=== PATIENT | male | born 1970 | race Caucasian/White ===

== ENCOUNTER 2021-07-28 11:43 | Emergency (ER) | payer SELFPAY ==
[~2021-07-28] VITALS: Ht 172.7 cm; Wt 104.3 kg
[~2021-07-28 11:43] MED LIST: HYDR1TAB94 PO
[2021-07-28] MEDS ORDERED: COLCRYS0.6 M1 PO (12:13)
[2021-07-28] MEDS ORDERED: LOSA50 (12:13)
[2021-07-28] MEDS ORDERED: FEBUXOSTAT80 MG PO (12:13)
[2021-07-28] MEDS ORDERED: Norco 5-325 Ta1 EACH PO (13:26)
== END 2021-07-28 13:44 | disposition home or self-care (01) ==
LOC: ER 11:43
DX: S63.601A Unspecified sprain of right thumb, initial encounter (principal); W01.0XXA Fall on same level from slipping, tripping and stumbling without subsequent striking against object, initial encounter
CPT/HCPCS: 73140; 99283-25

== ENCOUNTER 2022-07-24 01:05 | Inpatient (IN) | payer SELFPAY ==
[~2022-07-24] VITALS: Ht 172.7 cm; Wt 106.5 kg
[~2022-07-24 01:05] MED LIST changes: +CEFD300 PO; +COLCRYS0.6 M1 PO; +FEBUXOSTAT80 MG PO; +LOSA50; +METF500 PO; +METO100ER PO; +Norco 5-325 Ta1 EACH PO; +POTCHL20ER PO
[2022-07-24 03:02] LABS: Albumin, Blood 2.3 g/dL (3.4-5.0); Albumin/Globulin Ratio 0.6 (0.8-1.8); Bun/Creatinine Ratio 19.8 (12.0-20.0); Calcium, Blood 8.5 mg/dL (8.5-10.1); Creatinine, Blood 1.11 mg/dL (0.60-1.20); Globulin, Blood 3.9 g/dL (2.2-4.0); Magnesium, Blood 2.1 mg/dL (1.6-2.4); Potassium, Blood 3.9 mmol/L (3.5-5.5); Total Protein, Blood 6.2 g/dL (6.4-8.2)
[2022-07-24 03:19] LABS: Bilirubin, Direct 19.7 mg/dL (0.0-0.3); Bilirubin, Indirect 5.3 mg/dL (0.1-0.7)
[2022-07-24 03:56] LABS: International Normalized Ratio 3.98; Prothrombin Time Results 38.2 Sec (9.7-11.5)
[2022-07-24 05:00] LABS: BASOPHILS ABSOLUTE AUTO 0.04 K/mm3 (0.00-0.23); BASOPHILS PERCENT AUTO 0 % (0-2); EOSINOPHILS ABSOLUTE AUTO 0.03 K/mm3 (0.00-0.68); EOSINOPHILS PERCENT AUTO 0 % (0-6); Hematocrit 33.8 % (37.0-53.0); IMMATURE GRAN ABSOLUTE AUTO 0.05 K/mm3 (0.00-0.10); IMMATURE GRAN PERCENT AUTO 1 % (0-1); LYMPHOCYTES ABSOLUTE AUTO 0.75 K/mm3 (0.84-5.20); LYMPHOCYTES PERCENT AUTO 8 % (21-46); MONOCYTES ABSOLUTE AUTO 1.41 K/mm3 (0.16-1.47); MONOCYTES PERCENT AUTO 14 % (4-13); Mean Corpuscular Volume 101 fL (80-100); NEUTROPHILS ABSOLUTE AUTO 7.48 K/mm3 (1.96-9.15); NEUTROPHILS PERCENT AUTO 77 % (41-73); Platelet Count 200 K/mm3 (150-400); RDW Coefficient Variation 17.2 % (11.7-14.2); RDW Standard Deviation 64.3 fL (35.1-46.3); Red Blood Cell Count 3.36 M/mm3 (4.30-5.90); White Blood Cell Count 9.76 K/mm3 (4.00-11.30)
[2022-07-24 09:37] LABS: Source, Urine Clean Catch
[2022-07-24 10:02] LABS: Blood, Urine 2+ (Neg); Color, Urine Brown (P-Yellow); Glucose Qualitative, Urine 1+ (Neg); Ketones, Urine 1+ (Neg); Leukocyte Esterase, Urine 1+ (Neg); Nitrite, Urine Pos (Neg); Protein, Urine 2+ (Neg); Urobilinogen, Urine 3+ (Normal)
[2022-07-24 10:03] LABS: Bilirubin, Urine 3+ (Neg)
[2022-07-24 10:06] LABS: Hyaline Casts 50-100 /lpf (0-2)
[2022-07-24 10:08] LABS: Bacteria Many /hpf
[2022-07-24 10:10] LABS: Transitional Epithelial Cells Many /hpf (0-Rare)
[2022-07-24 10:12] LABS: Mucus Heavy (0-Heavy)
[2022-07-24 10:14] LABS: Appearance, Urine Cloudy (Clear)
[2022-07-24 10:15] LABS: Squamous Epithelial Cells Rare /hpf (Few)
--- NOTE | 2022-07-24 16:07 | NUR ---
SHIFT SUMMARY 0700 PT TO RM FROM ER DURING SHIFT REPORT. ADMITTED FOR ALCOHOLIC HEPATITIS. A&O, PLEASANT AND CO-OP. ABLE TO TX SELF TO BED. PT'S SKIN VERY YELLOW/JAUNDICED; FACE TO TORSO, ESPECIALLY. PT UP TO BTHRM TO VOID 90cc VERY DRK TEA COLORED URINE; SENT FOR UA. DR DELAROSA IN TO SEE PT EARLY. NEW ORDERS PLACED. PT REPORTED DIFFICULTY WITH BEING ABLE TO VOID. BLADDER SCAN ORDERED AND COMPLETE; 85cc PVR. US DONE FOR POSSIBLE PARACENTESIS; TECH REPORTED AMT OF FLUID MAY NOT BE ENOUGH FOR TAP. PT UP TO BTHRM AGAIN THIS AFTERNOON, REPORTING LOOSE STOOLS D/T LIVER ISSUES; NOT NEW. NO C/O PAIN TO PRESENT. RESTING QUIETLY WITH TV ON. DENIED FURTHER NEEDS AT THIS TIME. CALL LT IN REACH.
[2022-07-25 05:49] LABS: Albumin, Blood 1.9 g/dL (3.4-5.0); Albumin/Globulin Ratio 0.6 (0.8-1.8); Bilirubin, Total 22.3 mg/dL (0.1-1.0); Bun/Creatinine Ratio 20.8 (12.0-20.0); Calcium, Blood 7.5 mg/dL (8.5-10.1); Creatinine, Blood 1.44 mg/dL (0.60-1.20); Globulin, Blood 3.3 g/dL (2.2-4.0); Potassium, Blood 3.6 mmol/L (3.5-5.5); Total Protein, Blood 5.2 g/dL (6.4-8.2)
--- NOTE | 2022-07-25 06:00 | NUR ---
END OF SHIFT NURSING REPORT - PM Admitted for Acute alcoholic Hepatitis after presenting with bilateral lower abdominal sharp pains /. He admits prior use of hard alcohol, and daily beer. He presents with jaundice from head to waist line. Urine cloudy and orange. He is AOX4, room air and independent in room. Medicated for abdominal pain with PRN prior to bedtime x1. No acute events overnight, am labs drawn.
--- NOTE | 2022-07-25 18:19 | NUR ---
SHIFT SUMMARY NO ACUTE ISSUES THIS SHIFT. PTN SAYS SAYS IS FEELING BETTER, LESS PAIN TO ABD. JAUNDICE TO SKIN AND EYES NOTICABLE. MODERATE EDEMA TO LOWER LEGS AND FEET, EDUCATED ON ELEVATING LOWER EXTREMITIES. PTN VERBALIZED UNDERSTANDING. CONTINUE TO MONITOR.
[2022-07-26 05:22] LABS: Albumin, Blood 1.9 g/dL (3.4-5.0); Albumin/Globulin Ratio 0.6 (0.8-1.8); Bun/Creatinine Ratio 26.2 (12.0-20.0); Calcium, Blood 7.6 mg/dL (8.5-10.1); Creatinine, Blood 1.45 mg/dL (0.60-1.20); Globulin, Blood 3.2 g/dL (2.2-4.0); Potassium, Blood 3.2 mmol/L (3.5-5.5); Total Protein, Blood 5.1 g/dL (6.4-8.2)
--- NOTE | 2022-07-26 06:00 | NUR ---
END OF SHIFT NURSING REPORT - PM Admitted for Acute alcoholic Hepatitis after presenting with bilateral lower abdominal sharp pains 10/. He admits prior use of hard alcohol, and daily beer. He presents with jaundice from head to waist line. Urine cloudy and orange. He is AOX4, room air and independent in room. Medicated for abdominal pain with PRN prior to bedtime x1. Started for Tums Q6 PRN for acid reflux. No acute events overnight, am labs drawn.
[2022-07-26] MEDS ORDERED: OMEP20ER PO (11:43)
[2022-07-26] MEDS ORDERED: TAMS.4ER PO (11:43)
--- NOTE | 2022-07-26 12:52 | NUR ---
SHIFT SUMMARY PTN READY FOR D/C AND LEFT VIA WC AND SHERIE [facility]CHOA ESCORT TO EXIT. 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 D/C PAPERWORK REVIEWED WITH PTN AND ALL QUESTIONS ANSWERED. MEDICATIONS FAXED TO [facility] AT PTN REQUEST. TIME OF DEPARTURE 1230.
--- NOTE | 2022-07-26 15:02 | NUR ---
SHIFT SUMMARY PTN D/C'D HOME TODAY AT 1230, TRANSPORTED VIA WC TO EXIT FOR HIS RIDE HOME. D/C PAPERWORK COMPLETE AND REVIEWED WITH PTN, ALL QUESTIONS WERE ANSWERED. MEDICATIONS WERE FAXED OVER TO THE [facility] PER PTN REQUEST.
== END 2022-07-26 12:30 | disposition home or self-care (01) | DRG 690 ==
LOC: ER 01:05 → MEDS 06:26
PROVIDERS: Family Medicine; Student in an Organized Health Care Education/Training Program; ADMIT Internal Medicine
DX: N30.90 Cystitis, unspecified without hematuria (principal); D68.9 Coagulation defect, unspecified; E87.1 Hypo-osmolality and hyponatremia; K76.6 Portal hypertension; K70.31 Alcoholic cirrhosis of liver with ascites; K70.11 Alcoholic hepatitis with ascites; R94.5 Abnormal results of liver function studies; E80.6 Other disorders of bilirubin metabolism; K21.9 Gastro-esophageal reflux disease without esophagitis; F10.20 Alcohol dependence, uncomplicated; E87.6 Hypokalemia; R74.8 Abnormal levels of other serum enzymes; R73.9 Hyperglycemia, unspecified; Z79.84 Long term (current) use of oral hypoglycemic drugs; Z79.899 Other long term (current) drug therapy; Z79.2 Long term (current) use of antibiotics; Z98.890 Other specified postprocedural states; Z71.41 Alcohol abuse counseling and surveillance of alcoholic
CPT/HCPCS: 36415; 76705; 80048; 80053; 80076; 81001; 83615; 83690; 83735; 85025; 85610; 85730; 87086; 96361; 96374; 96375; 96376; 99284-25; A9270; G0378; J0696; J2270; J2405; J2920; J7030

== ENCOUNTER 2022-11-12 02:26 | Day surgery (SDC) | payer OTHER ==
[~2022-11-12 02:26] MED LIST changes: +OMEP20ER PO; +TAMS.4ER PO
== END 2022-11-12 22:48 | disposition home or self-care (01) ==
LOC: WOUND 02:26
PROC: 0JBP0ZZ Excision of Left Lower Leg Subcutaneous Tissue and Fascia, Open Approach (ICD-10-PCS; principal; 2022-11-12)
DX: E11.51 Type 2 diabetes mellitus with diabetic peripheral angiopathy without gangrene (principal); I70.248 Atherosclerosis of native arteries of left leg with ulceration of other part of lower leg; I70.238 Atherosclerosis of native arteries of right leg with ulceration of other part of lower leg; L97.822 Non-pressure chronic ulcer of other part of left lower leg with fat layer exposed; L97.812 Non-pressure chronic ulcer of other part of right lower leg with fat layer exposed; I83.018 Varicose veins of right lower extremity with ulcer other part of lower leg; I83.028 Varicose veins of left lower extremity with ulcer other part of lower leg; N18.6 End stage renal disease; E11.22 Type 2 diabetes mellitus with diabetic chronic kidney disease; K70.31 Alcoholic cirrhosis of liver with ascites; I87.2 Venous insufficiency (chronic) (peripheral); L03.115 Cellulitis of right lower limb; L03.116 Cellulitis of left lower limb; K76.7 Hepatorenal syndrome; D69.6 Thrombocytopenia, unspecified; Z99.2 Dependence on renal dialysis; Z79.4 Long term (current) use of insulin
CPT/HCPCS: A9270; G0463

== ENCOUNTER 2022-12-03 03:00 | Day surgery (SDC) | payer OTHER | END 2022-12-03 22:52 | disposition home or self-care (01) | LOC: WOUND 03:00 | DX: E11.622 Type 2 diabetes mellitus with other skin ulcer (principal); L97.829 Non-pressure chronic ulcer of other part of left lower leg with unspecified severity; L03.115 Cellulitis of right lower limb; L03.116 Cellulitis of left lower limb; I83.029 Varicose veins of left lower extremity with ulcer of unspecified site; K70.31 Alcoholic cirrhosis of liver with ascites; E11.22 Type 2 diabetes mellitus with diabetic chronic kidney disease; N18.6 End stage renal disease; K76.7 Hepatorenal syndrome; D69.6 Thrombocytopenia, unspecified; E11.621 Type 2 diabetes mellitus with foot ulcer; I87.313 Chronic venous hypertension (idiopathic) with ulcer of bilateral lower extremity; I87.2 Venous insufficiency (chronic) (peripheral); E11.51 Type 2 diabetes mellitus with diabetic peripheral angiopathy without gangrene | CPT/HCPCS: G0463 ==

== ENCOUNTER 2022-12-10 04:18 | Day surgery (SDC) | payer OTHER | END 2022-12-10 23:04 | disposition home or self-care (01) | LOC: WOUND 04:18 | DX: I83.028 Varicose veins of left lower extremity with ulcer other part of lower leg (principal); L97.829 Non-pressure chronic ulcer of other part of left lower leg with unspecified severity; L03.115 Cellulitis of right lower limb; L03.116 Cellulitis of left lower limb; K70.31 Alcoholic cirrhosis of liver with ascites; N18.6 End stage renal disease; E11.22 Type 2 diabetes mellitus with diabetic chronic kidney disease; D69.6 Thrombocytopenia, unspecified; K76.7 Hepatorenal syndrome; I87.2 Venous insufficiency (chronic) (peripheral) | CPT/HCPCS: G0463 ==

== ENCOUNTER 2023-03-31 18:53 | Inpatient (IN) | payer MEDICARE, OTHER ==
[~2023-03-31] VITALS: Ht 182.9 cm; Wt 76.1 kg
[~2023-03-31 18:53] MED LIST changes: +BASAGLAR K100 UNIT/1 SC; +DOXY100 PO; +HONEY PASTE TOP; +HUMALOG KW100 UNIT/1 SC; +INSULANI SC; +JUVEN PACKET1 EAC3 PO; +LACT10SY PO; +MIDO5 PO; +NEPHRO VITAMIN0.8 MG PO; +ONDA4ODT MM; +PANT20 PO; +Prednisone10 MG PO; +RIFA550T2 PO; +SODBIC650 PO; +SPIRONOLACTONE25 MG PO; +TRAZ50 PO; +VISBIOME 112.51 EACH PO
[2023-03-31 19:11] LABS: BASOPHILS ABSOLUTE AUTO 0.04 K/mm3 (0.00-0.23); BASOPHILS PERCENT AUTO 1 % (0-2); EOSINOPHILS ABSOLUTE AUTO 0.31 K/mm3 (0.00-0.68); EOSINOPHILS PERCENT AUTO 7 % (0-6); Hematocrit 30.8 % (37.0-53.0); Hemoglobin 10.3 g/dL (13.5-17.5); IMMATURE GRAN ABSOLUTE AUTO 0.01 K/mm3 (0.00-0.10); IMMATURE GRAN PERCENT AUTO 0 % (0-1); LYMPHOCYTES ABSOLUTE AUTO 0.98 K/mm3 (0.84-5.20); LYMPHOCYTES PERCENT AUTO 21 % (21-46); MONOCYTES PERCENT AUTO 17 % (4-13); Mean Corpuscular HGB 31.8 pg (26.0-34.0); Mean Corpuscular HGB Conc 33.4 g/dL (31.5-36.5); Mean Corpuscular Volume 95 fL (80-100); Mean Platelet Volume 11.2 fL (9.1-12.4); NEUTROPHILS ABSOLUTE AUTO 2.47 K/mm3 (1.96-9.15); NEUTROPHILS PERCENT AUTO 54 % (41-73); Platelet Count 109 K/mm3 (150-400); RDW Coefficient Variation 17.2 % (11.7-14.2); RDW Standard Deviation 59.7 fL (35.1-46.3); Red Blood Cell Count 3.24 M/mm3 (4.30-5.90); White Blood Cell Count 4.61 K/mm3 (4.00-11.30)
[2023-03-31 19:35] LABS: Albumin, Blood 3.1 g/dL (3.4-5.0); Albumin/Globulin Ratio 0.8 (0.8-1.8); Bilirubin, Total 1.4 mg/dL (0.1-1.0); Bun/Creatinine Ratio 13.7 (12.0-20.0); Calcium, Blood 10.3 mg/dL (8.5-10.1); Creatinine, Blood 4.32 mg/dL (0.60-1.20); Globulin, Blood 4.1 g/dL (2.2-4.0); Potassium, Blood 3.6 mmol/L (3.5-5.5); Total Protein, Blood 7.2 g/dL (6.4-8.2)
[2023-03-31 22:45] VITALS: BP 147/72
[2023-03-31] MEDS ORDERED: ZINC220 PO (22:59)
[2023-03-31] MEDS ORDERED: Calcium Acetat667 MG PO (23:00)
[2023-03-31] MEDS ORDERED: THERA-D2000 UNIT PO (23:01)
[2023-04-01] VITALS (23 sets, daily range): BP systolic 100–160; BP diastolic 53–86
[2023-04-01 05:13] LABS: Hematocrit 29.4 % (37.0-53.0); Mean Corpuscular HGB 32.3 pg (26.0-34.0); Mean Corpuscular Volume 95 fL (80-100); Platelet Count 112 K/mm3 (150-400); RDW Coefficient Variation 17.4 % (11.7-14.2); RDW Standard Deviation 60.4 fL (35.1-46.3); White Blood Cell Count 4.62 K/mm3 (4.00-11.30)
[2023-04-01 06:03] LABS: Magnesium, Blood 2.7 mg/dL (1.6-2.4)
[2023-04-01 06:04] LABS: Albumin, Blood 2.9 g/dL (3.4-5.0); Albumin/Globulin Ratio 0.8 (0.8-1.8); Bilirubin, Total 1.4 mg/dL (0.1-1.0); Bun/Creatinine Ratio 14.1 (12.0-20.0); Calcium, Blood 10.3 mg/dL (8.5-10.1); Creatinine, Blood 4.54 mg/dL (0.60-1.20); Globulin, Blood 3.8 g/dL (2.2-4.0); Phosphorus, Blood 3.1 mg/dL (2.5-4.9); Potassium, Blood 3.1 mmol/L (3.5-5.5); Total Protein, Blood 6.7 g/dL (6.4-8.2)
--- NOTE | 2023-04-01 06:26 | NUR ---
SHIFT SUMMARY PATIENT ARRIVED TO PCU 17 VIA STRATCHER, ABLE TO STAND AND SELF TRANSFER TO THE BED, STEADY ON FEET. PATIENT ALERT AND ORIENTED X4, PLEASANT AND JOKING WITH STAFF. ON ROOM AIR WITH SPO2 100%, LUNG SOUNDS CLEAR, NO COMPLAINTS OF SHORTNESS OF BREATH. DENIES CHEST PAIN, VITAL SIGNS STABLE. NO ACUTE ISSUES NOTED OVERNIGHT. WILL CONTINUE TO MONITOR. CALL LIGHT WITHIN REACH.
--- NOTE | 2023-04-01 13:43 | NUR ---
Pt arrived to us in a great mood, having normal, clear conversation. As staff was getting ready to hook him up to dialysis, he threw up 500ml. Pt ran a 3.5 hr tx and near the end started not making sense. He got angry and told staff to get away from him and stated that he felt drunk. We ended tx per protocol and notified his floor RN of the change of his mentation. Pts arrived as pt was getting ready to leave dialysis room.
--- NOTE | 2023-04-01 17:31 | NUR ---
END OF SHIFT UPON CARE ASSUMPTION THIS AM, PT A&O X4, PLEASANT & COOPERATIVE, INDEPENDENT IN RM. PT THEN REPORTING FEELING NEED FOR LACTULOSE THIS AM, LACTULOSE GIVEN SCHEDULED. PT THEN GONE TO DIALYSIS & HAD EPISODE OF N/V. [place] NOTIFIED W/ MD ORDER FOR PRN IV ZOFRAN. PT THEN INCREASINGLY AGITATED, DROWSY & CONFUSED UPON RETURN TO UNIT. PT REFUSING SCHEDULED LACTULOSE UPON RETURN, CUSSING & REQUESTING TO BE LEFT ALONE. PT EVENTUALLY AGREEABLE TO TAKING LACTULOSE & WENT TO SLEEP. PT THEN AWAKE, ALERT, PLEASANT & COOPERATIVE W/ PT DENYING REMEMBERING GOING TO DIALYSIS & STATE OF CONFUSION & AGITATION DURING & AFTER DIALYSIS. PT AT BEDSIDE T/O PT STATE OF CONFUSION, APOLOGIZING, STATING "HE'S NOT USUALLY LIKE THIS." PT NOW PLEASANT & COOPERATIVE AGAIN & TAKING LACTULOSE ORDERED BY , AMBULATING TO BATHROOM & HAVING BMs. PT MEDICAL NO TELEMETRY STATUS. VSS. SPO2 > 92% ON RA.
[2023-04-02] VITALS (13 sets, daily range): BP systolic 106–155; BP diastolic 61–90
[2023-04-02 03:57] LABS: BASOPHILS ABSOLUTE AUTO 0.03 K/mm3 (0.00-0.23); BASOPHILS PERCENT AUTO 1 % (0-2); EOSINOPHILS ABSOLUTE AUTO 0.35 K/mm3 (0.00-0.68); EOSINOPHILS PERCENT AUTO 7 % (0-6); Hematocrit 30.3 % (37.0-53.0); Hemoglobin 10.4 g/dL (13.5-17.5); IMMATURE GRAN ABSOLUTE AUTO 0.02 K/mm3 (0.00-0.10); IMMATURE GRAN PERCENT AUTO 0 % (0-1); LYMPHOCYTES ABSOLUTE AUTO 1.18 K/mm3 (0.84-5.20); LYMPHOCYTES PERCENT AUTO 23 % (21-46); MONOCYTES ABSOLUTE AUTO 1.01 K/mm3 (0.16-1.47); MONOCYTES PERCENT AUTO 19 % (4-13); Mean Corpuscular HGB 32.5 pg (26.0-34.0); Mean Corpuscular HGB Conc 34.3 g/dL (31.5-36.5); Mean Corpuscular Volume 95 fL (80-100); Mean Platelet Volume 11.2 fL (9.1-12.4); NEUTROPHILS ABSOLUTE AUTO 2.65 K/mm3 (1.96-9.15); NEUTROPHILS PERCENT AUTO 51 % (41-73); Platelet Count 118 K/mm3 (150-400); RDW Coefficient Variation 17.5 % (11.7-14.2); RDW Standard Deviation 61.1 fL (35.1-46.3); White Blood Cell Count 5.24 K/mm3 (4.00-11.30)
[2023-04-02 04:29] LABS: Magnesium, Blood 2.6 mg/dL (1.6-2.4)
[2023-04-02 04:30] LABS: Anion Gap 5 mmol/L (6-16); Blood Urea Nitrogen 36 mg/dL (8-24); Bun/Creatinine Ratio 8.7 (12.0-20.0); CO2, Blood 32 mmol/L (21-32); Calcium, Blood 9.7 mg/dL (8.5-10.1); Chloride, Blood 102 mmol/L (98-108); Creatinine, Blood 4.15 mg/dL (0.60-1.20); Glomerular Filtration Rate 16 (60-); Glucose, Blood 154 mg/dL (70-99); Phosphorus, Blood 4.2 mg/dL (2.5-4.9); Potassium, Blood 3.4 mmol/L (3.5-5.5); Sodium, Blood 139 mmol/L (136-145)
--- NOTE | 2023-04-02 06:07 | NUR ---
SHIFT SUMMARY PATIENT ALERT AND ORIENTED X4. HAD NO COMPLAINTS OF PAIN OR SHORTNESS OF BREATH. MEDICATED PER EMAR FOR NAUSEA. PATIENT REPORTING LOOSE STOOLS THAT LOOK LIKE HIS LACTULOSE OVERNIGHT. VITAL SIGNS STABLE, ON ROOM AIR. NO ACUTE ISSUES NOTED OVERNIGHT. WILL CONTINUE TO MONITOR. CALL LIGHT WITHIN REACH.
[2023-04-02] MEDS ORDERED: METO5A PO (13:41)
[2023-04-02] MEDS ORDERED: Kristalose20 GM PO (13:51)
--- NOTE | 2023-04-02 15:11 | NUR ---
Patient alert & oriented x4. Ammonia level is trending down. Diaylsis treamtent this AM, rechecked Ammonia level- 34. MD said patient is medically stable and ready for discharge. Reviewed discharge education, patient & verbalized understanding. Patient left unit at 1400.
== END 2023-04-02 15:33 | disposition home or self-care (01) | DRG 441 ==
LOC: ER 18:53 → PCU 18:54
PROVIDERS: Emergency Medicine; Internal Medicine Nephrology; Nurse Practitioner Acute Care; ADMIT Internal Medicine
PROC: 5A1D70Z Performance of Urinary Filtration, Intermittent, Less than 6 Hours Per Day (ICD-10-PCS; principal; 2023-04-02)
DX: K76.82 Hepatic encephalopathy (principal); K76.7 Hepatorenal syndrome; N18.6 End stage renal disease; K70.30 Alcoholic cirrhosis of liver without ascites; D63.1 Anemia in chronic kidney disease; I10 Essential (primary) hypertension; F10.21 Alcohol dependence, in remission; T47.3X6A Underdosing of saline and osmotic laxatives, initial encounter; I95.9 Hypotension, unspecified; E11.9 Type 2 diabetes mellitus without complications; E87.6 Hypokalemia; E86.9 Volume depletion, unspecified; E88.09 Other disorders of plasma-protein metabolism, not elsewhere classified; Z99.2 Dependence on renal dialysis; Z91.138 Patient's unintentional underdosing of medication regimen for other reason
CPT/HCPCS: 36415; 80053; 80069; 82140; 83735; 84100; 85025; 85027; 93005; 93010; 96372; 96374; 96376; 99285-25; A9270; G0378; J0881; J1644; J2405

== ENCOUNTER → 2025-03-19 | Outpatient (CLI) | payer MEDICARE ==
[~2025-03-19] MED LIST changes: +Calcium Acetat667 MG PO; +Kristalose20 GM PO; +METO5A PO; +THERA-D2000 UNIT PO; +ZINC220 PO
[2025-03-19 14:41] LABS: Microalbumin, Urine Quant. 6.5 mg/L (0.000-20.000); Protein, Urine Quantitative 11.6 mg/dL (0.0-11.9)
== END | disposition home or self-care (01) ==
LOC: LAB SHORT 10:00 → LAB 10:00 → LAB FUT 03-14 08:35
PROVIDERS: Internal Medicine Nephrology
DX: N18.30 Chronic kidney disease, stage 3 unspecified (principal); D63.1 Anemia in chronic kidney disease; N25.81 Secondary hyperparathyroidism of renal origin; E55.9 Vitamin D deficiency, unspecified; E78.00 Pure hypercholesterolemia, unspecified; D51.8 Other vitamin B12 deficiency anemias; D52.8 Other folate deficiency anemias; D50.9 Iron deficiency anemia, unspecified; R76.9 Abnormal immunological finding in serum, unspecified; R94.5 Abnormal results of liver function studies; R94.6 Abnormal results of thyroid function studies
CPT/HCPCS: 82043; 82570; 84156